=== PATIENT | male | born 1960 | race Caucasian/White ===

== ENCOUNTER 2018-05-29 13:25 | Emergency (ER) | payer MEDICARE ==
--- NOTE | 2018-05-29 13:51 | ERPHSYRPT ---
- History of Present Illness Time Seen by Provider: 05/29/18 13:46 Historian: patient Exam Limitations: no limitations Physician History: 57-year-old white male arrives with complaints of pain in his anterior chest described as a dull associated with shortness of breath and paresthesias to his left hand he also feels like his left hand is drawing up. Patient states he was nauseous earlier not now. Past medical history positive for high blood pressure, hypercholesterolemia, diabetes type 2. Past surgical history includes cholecystectomy, disc surgery on his neck, knee surgery on the left Social history negative for tobacco alcohol or illicit drug use. patient states he took 2 full size aspirin tablets before he came to the emergency room. Timing/Duration: today (1:00 this afternoon) Activities at Onset: none Quality: dullness Location: other (left upper chest) Chest Pain Radiation: no radiation Severity of Pain-Max: moderate Severity of Pain-Current: mild Modifying Factors: Improves With: nothing Associated Symptoms: nausea, shortness of breath, other (paresthesias left hand and feels like left hand drawing up), No vomiting, No palpitations, No heartburn , No abdominal pain, No cough, No hurts to breathe, No diaphoresis, No chills, No fever, No fatigue, No weakness, No swelling/lump in chest, No syncope, No rash, No headache, No dizziness, No edema, No back pain Nitro Today/Relief: no nitro taken today Aspirin Treatment Today: provided at home (650 mg at home) Allergies/Adverse Reactions: No Known Drug Allergies Allergy (Verified 05/29/18 13:58) Home Medications: Metformin HCl 1000 mg [Glucophage 1000 MG] 1 tab PO BID 01/02/14 [History] - Review of Systems Constitutional: No Fever, No Chills Eyes: No Symptoms Ears, Nose, & Throat: No Symptoms Respiratory: Dyspnea, No Cough, No Cyanosis, No Dyspnea on Exertion (ARRIAZA), No Stridor, No Wheezing Cardiac: Chest Pain, No Edema, No Palpitations, No Syncope, No Orthopnea, No PND , No Other Abdominal/Gastrointestinal: No Abdominal Pain, No Nausea, No Vomiting, No Diarrhea Genitourinary Symptoms: No Dysuria Musculoskeletal: No Back Pain, No Neck Pain Skin: No Rash Neurological: Parasthesia (Paresthesia left hand), No Dizziness, No Focal Weakness, No Gait Changes, No Headache, No Irritability, No Lethargy, No Paralysis, No Seizure, No Sensory Changes, No Speech Changes, No Tics, No Tremors, No Vertigo Psychological: No Symptoms Endocrine: No Symptoms All Other Systems: Reviewed and Negative - Past Medical History Pertinent Past Medical History: Yes Neurological History: No Pertinent History ENT History: Other Cardiac History: Hypertension Respiratory History: No Pertinent History Endocrine Medical History: Diabetes Type II Musculoskeletal History: Arthritis GI Medical History: Gallbladder Disease History: No Pertinent History Psycho-Social History: No Pertinent History Male Reproductive Disorders: No Pertinent History Other Medical History: 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 - Past Surgical History Past Surgical History: Yes Neuro Surgical History: No Pertinent History Cardiac: No Pertinent History Respiratory: No Pertinent History Gastrointestinal: No Pertinent History Genitourinary: No Pertinent History Musculoskeletal: Orthopedic Surgery Male Surgical History: No Pertinent History Other Surgical History: neck - Social History Smoking Status: Never smoker Exposure to second hand smoke: No Drug Use: none - Nursing Vital Signs Nursing Vital Signs: Initial Vital Signs Temperature 98.4 F 05/29/18 13:31 Pulse Rate 74 05/29/18 13:31 Respiratory Rate 16 05/29/18 13:31 Blood Pressure 204/100 05/29/18 13:31 O2 Sat by Pulse Oximetry 99 05/29/18 13:31 Pain Scale Pain Intensity 0 - Physical Exam General Appearance: anxiety, other (well-developed well-nourished white male, anxious) Eye Exam: PERRL/EOMI, eyes nml inspection Ears, Nose, Throat Exam: normal ENT inspection, moist mucous membranes Neck Exam: normal inspection, non-tender, supple, full range of motion Respiratory Exam: normal breath sounds, lungs clear, No respiratory distress Cardiovascular Exam: regular rate/rhythm, normal heart sounds, capillary refill <2 sec Gastrointestinal/Abdomen Exam: soft, No tenderness, No mass Back Exam: normal inspection, No CVA tenderness, No vertebral tenderness Extremity Exam: normal inspection, normal range of motion Neurologic Exam: alert, oriented x 3, waterproof coating machine tender II-XII nml as tested, normal mood/ affect, other (patient is oriented 3 alert, no facial droop, client relations representative equal and symmetrical 5 over 5, misses nose with left hand on finger to nose speech normal full range of motion toall extremities, no sensory deficits GCS equals 15 ) Skin Exam: normal color, warm, dry SpO2 Interpretation: normal (99%) - Course Nursing assessment & vital signs reviewed: Yes EKG Interpreted by Me: RATE (62 bpm), Sinus Rhythm, NORMAL AXIS, Other (EKG: Sinus rhythm, 62 bpm, normal axis, Q waves in lead 3, poor anterior R-wave progression, no acute ST or T wave changes, compared to December 26, 2013) - Radiology Exams Chest X-ray Interpretation: Discussed w/ radiologist (chest x-ray: Normal heart and lungs. Bony thorax intact with mild degenerative changes and lower cervical fusion surgery) - CT Exams Head CT Interpretation: Discussed w/radiologist (head CT: Impression: 9 mm colloid cyst without hydrocephalus. No acute intracranial abnormalities. Incidental paranasal sinus disease.) Ordered Tests: Active Orders 24 hr Category Date Time Status EKG-ER Only STAT Care 05/29/18 13:44 Active IV Insertion STAT Care 05/29/18 13:44 Active Pulse Oximetry (ED) STAT Care 05/29/18 13:44 Active CHEST 1 VIEW (PORTABLE) Stat Exams 05/29/18 14:01 Completed HEAD WITHOUT CONTRAST [CT] Stat Exams 05/29/18 13:45 Completed CBC W DIFF Stat Lab 05/29/18 13:51 Completed CMP Stat Lab 05/29/18 13:51 Completed D-DIMER QUANTITATION Stat Lab 05/29/18 13:51 Completed NT PRO BNP Stat Lab 05/29/18 13:51 Completed PROTIME WITH INR Stat Lab 05/29/18 13:51 Completed PTT Stat Lab 05/29/18 13:51 Completed TROPONIN Q3H Lab 05/29/18 13:52 Completed TROPONIN Q3H Lab 05/29/18 16:45 Ordered TROPONIN Q3H Lab 05/29/18 19:45 Ordered TROPONIN Q3H Lab 05/29/18 22:45 Ordered TROPONIN Q3H Lab 05/30/18 01:45 Ordered Medication Summary Generic Name Dose Route Start Last Admin Trade Name Freq PRN Reason Stop Dose Admin Sodium Chloride 1,000 mls @ 60 mls/hr 05/29/18 15:30 05/29/18 15:30 Sodium Chloride 0.9% 1000 Ml IV 06/28/18 15:29 60 mls/hr .[id number] CINTIA Administration Discontinued Medications Generic Name Dose Route Start Last Admin Trade Name Freq PRN Reason Stop Dose Admin Nitroglycerin 1 gm 05/29/18 15:25 05/29/18 15:30 Nitro-Bid 2% Ud Packets TOP 05/29/18 15:26 1 gm STAT ONE Administration Nitroglycerin Confirm 05/29/18 15:26 Nitro-Bid 2% Ud Packets Administered 05/29/18 15:27 Dose 1 gm .ROUTE .STK-MED ONE Lab/Rad Data: Laboratory Result Diagrams 05/29/18 13:51 05/29/18 13:51 Laboratory Results 05/29/18 05/29/18 05/29/18 Range/Units 13:52 13:51 13:51 WBC (4.0-10.5) K/mm3 RBC (4.1-5.6) M/mm3 Hgb (12.5-18.0) gm/dl Hct (42-50) % MCV (78-100) fl MCH (26-32) pg MCHC (32-36) g/dl RDW (11.5-14.0) % Plt Count (150-450) K/mm3 MPV (6-9.5) fl Gran % (36.0-66.0) % Eos # (Auto) (0-0.5) Absolute Lymphs (auto) (1.0-4.6) Absolute Monos (auto) (0.0-1.3) Lymphocytes % (24.0-44.0) % Monocytes % (0.0-12.0) % Eosinophils % (0.00-5.0) % Basophils % (0.0-0.4) % Absolute Granulocytes (1.4-6.9) Basophils # (0-0.4) PT 10.9 (8.83-12.87) SECONDS INR 0.94 (0.8-3.0) APTT 29.1 (24.1-36.1) SECONDS D-Dimer 432 (215-500) ng/mL Sodium 138 (137-145) mmol/L Potassium 3.6 (3.5-5.1) mmol/L Chloride 100 (98-107) mmol/L Carbon Dioxide 28 (22-30) mmol/L Anion Gap 14.0 (5-15) MEQ/L BUN 17 (9-20) mg/dL Creatinine 0.82 (0.66-1.25) mg/dL Estimated GFR > 60.0 ML/MIN Glucose 143 H (74-106) mg/dL Calcium 9.9 (8.4-10.2) mg/dL Total Bilirubin 0.60 (0.2-1.3) mg/dL AST 29 (17-59) U/L ALT 38 (0-50) U/L Alkaline Phosphatase 64 (38-126) U/L Troponin I 0.067 H* (0.000-0.034) ng/mL NT-Pro-B Natriuret Pep 314 (0-900) pg/mL Serum Total Protein 8.1 (6.3-8.2) g/dL Albumin 4.7 (3.5-5.0) g/dL 05/29/18 Range/Units 13:51 WBC 4.6 (4.0-10.5) K/mm3 RBC 4.67 (4.1-5.6) M/mm3 Hgb 14.4 (12.5-18.0) gm/dl Hct 43.4 (42-50) % MCV 92.9 (78-100) fl MCH 30.8 (26-32) pg MCHC 33.2 (32-36) g/dl RDW 13.2 (11.5-14.0) % Plt Count 203 (150-450) K/mm3 MPV 11.0 H (6-9.5) fl Gran % 60.2 (36.0-66.0) % Eos # (Auto) 0.23 (0-0.5) Absolute Lymphs (auto) 1.03 (1.0-4.6) Absolute Monos (auto) 0.53 (0.0-1.3) Lymphocytes % 22.5 L (24.0-44.0) % Monocytes % 11.6 (0.0-12.0) % Eosinophils % 5.0 (0.00-5.0) % Basophils % 0.7 (0.0-0.4) % Absolute Granulocytes 2.76 (1.4-6.9) Basophils # 0.03 (0-0.4) PT (8.83-12.87) SECONDS INR (0.8-3.0) APTT (24.1-36.1) SECONDS D-Dimer (215-500) ng/mL Sodium (137-145) mmol/L Potassium (3.5-5.1) mmol/L Chloride (98-107) mmol/L Carbon Dioxide (22-30) mmol/L Anion Gap (5-15) MEQ/L BUN (9-20) mg/dL Creatinine (0.66-1.25) mg/dL Estimated GFR ML/MIN Glucose (74-106) mg/dL Calcium (8.4-10.2) mg/dL Total Bilirubin (0.2-1.3) mg/dL AST (17-59) U/L ALT (0-50) U/L Alkaline Phosphatase (38-126) U/L Troponin I (0.000-0.034) ng/mL NT-Pro-B Natriuret Pep (0-900) pg/mL Serum Total Protein (6.3-8.2) g/dL Albumin (3.5-5.0) g/dL - Progress Progress: improved Air Movement: fair Progress Note: 05/29/18 13:54 This is a 57-year-old white male who arrives with complaint of pain in his left upper chest described as dull on since since 1:00 associated with shortness of breath paresthesias in drawing up of the left hand and initial nausea which has passed. Patient states she has a history of high blood pressure hypercholesterolemia and diabetes type 2 On physical examination examination is essentially normal with the exception that the patient Mrs. with finger to nose on the left he does not have any pronator drift he has client relations representative which are equal and symmetrical 5 over 5 he has full range of motion all extremities there is no speech deficits there are no neurologic deficits other than missing on finger to nose. Patient apparently states that this is been a problem with him for a while then he has been working with his family doctor concerning as he does feel like his paresthesias of his hand was worse today. Patient apparently took aspirin 650 mg prior to arrival. Patient with an EKG that shows sinus rhythm 62 bpm normal axis Q waves in lead 3 and poor anterior R-wave progression there does not appear to be acute ST or T wave changes EKG is compared to December 26, 2013. I believe patient's paresthesias to his left hand and "drawing up of his left hand R secondary to hyperventilation and carpal pedal spasms these appear to be getting better according to the patient however because of the patient's abnormal finger to nose on the left Will go ahead and obtain head CT. CBC CMP troponin d-dimer chest x-ray have all been ordered and are pending, 05/29/18 15:26 Patient states he is feeling markedly improved and is pain free. However unfortunately, his troponin is elevated at 0.067. Patient's blood pressure has been running high. Will go ahead and give patient nitroglycerin paste 1 inch and hang of normal saline to keep open. Will go ahead and contact [facility] one call for possible transfer. 05/29/18 15:37 I contacted [facility] one call. And discussed the case with Aruna CANDELARIA at the emergency room. She is excepted the patient for transfer by auto acceptance. They will call back with an accepting physician's name. Will go ahead and arrange transport. 05/29/18 15:44 The accepting physician at [facility] be Dr. Juarez. - Departure Time of Disposition: 15:38 Departure Disposition: [facility]) Clinical Impression: Elevated troponin, Paresthesias in left hand Chest pain Qualifiers: Chest pain type: unspecified Qualified Code(s): R07.9 - Chest pain, unspecified Condition: Fair Critical Care Time: No Referrals: KIMBER HERNADEZ MD [Primary Care Provider] -
[2018-05-29 14:10] LABS: BASOPHIL % 0.7 % (0.0-0.4); Basophil (Absolute #) 0.03 (0-0.4); Eosinophil (Absolute #) 0.23 (0-0.5); Granulocyte Absolute (ANC) 2.76 (1.4-6.9); Granulocytes % 60.2 % (36.0-66.0); Hematocrit 43.4 % (42-50); Hemoglobin 14.4 gm/dl (12.5-18.0); Lymphocyte (Absolute #) 1.03 (1.0-4.6); Lymphocytes % 22.5 % (24.0-44.0); Mean Cell Volume 92.9 fl (78-100); Mean Corpuscular Hemoglobin 30.8 pg (26-32); Mean Corpuscular Hgb Concent. 33.2 g/dl (32-36); Monocyte (Absolute #) 0.53 (0.0-1.3); Monocytes % 11.6 % (0.0-12.0); Platelet Count 203 K/mm3 (150-450); Red Blood Count 4.67 M/mm3 (4.1-5.6); Red Cell Distribution Width 13.2 % (11.5-14.0); White Blood Count 4.6 K/mm3 (4.0-10.5)
--- NOTE | 2018-05-29 14:18 | XRAY ---
Indication: Chest pain. Comparison: None Portable chest demonstrates normal heart and lungs. Bony thorax intact with mild degenerative changes and lower cervical fusion surgery.
[2018-05-29 14:19] LABS: INR 0.94 (0.8-3.0); PROTIME 10.9 SECONDS (8.83-12.87)
--- NOTE | 2018-05-29 14:21 | XRAY ---
Indication: Left hand numbness and chest pain. Multiple contiguous axial images obtained through the head without contrast. Comparison: None Ventriculosulcal pattern appears symmetric. There is a 9 mm dense colloid cyst in the foramen of [place]ro. No acute intracranial hemorrhage, abnormal extra-axial fluid collection, or mass effect. Fourth ventricle is midline without hydrocephalus. Andrew-white matter differentiation preserved. Bony calvarium intact. Mild mucosal thickening of both ethmoid sinuses. Mastoid air cells are clear. Impression: 9 mm colloid cyst without hydrocephalus. No acute intracranial abnormalities. Incidental paranasal sinus disease. CT DI 67.22
[2018-05-29 14:22] LABS: PTT 29.1 SECONDS (24.1-36.1)
[2018-05-29 14:32] LABS: ALBUMIN 4.7 g/dL (3.5-5.0); ALKALINE PHOSPHATASE 64 U/L (38-126); BLOOD UREA NITROGEN 17 mg/dL (9-20); CHLORIDE 100 mmol/L (98-107); Calcium 9.9 mg/dL (8.4-10.2); Carbon Dioxide 28 mmol/L (22-30); Creatinine 1 0.82 mg/dL (0.66-1.25); Glucose 143 mg/dL (74-106); NT PRO BNP 314 pg/mL (0-900); Potassium 3.6 mmol/L (3.5-5.1); SGOT/AST 29 U/L (17-59); SGPT/ALT 38 U/L (0-50); SODIUM 138 mmol/L (137-145); Total Protein 8.1 g/dL (6.3-8.2)
[2018-05-29] MEDS ORDERED: NITRO-BID 2% UD PACKETS TOP ONE (15:25)
[2018-05-29] MEDS ORDERED: Sodium Chloride 0.9% 1000 ML 1,000 ML ONE (15:25)
[2018-05-29] MEDS ORDERED: NITRO-BID 2% UD PACKETS ONE (15:26)
[2018-05-29] MEDS ORDERED: Sodium Chloride 0.9% 1000 ML 1,000 ML IV SCH (15:30)
[2018-05-29 15:46] VITALS: PULSE 72; O2SAT 97
[2018-05-29 16:06] VITALS: BP 180/113
== END 2018-05-29 16:20 | disposition short-term general hospital (02) ==
LOC: ED 13:25
DX: R74.8 Abnormal levels of other serum enzymes (principal); R20.2 Paresthesia of skin; R07.9 Chest pain, unspecified; M19.90 Unspecified osteoarthritis, unspecified site; E11.9 Type 2 diabetes mellitus without complications; Z79.4 Long term (current) use of insulin; I10 Essential (primary) hypertension; E78.00 Pure hypercholesterolemia, unspecified
CPT/HCPCS: 36000; 36415; 70450; 71045; 80053; 83880; 84484; 85025; 85379; 85610; 85730; 93005; 96360; 99285; A9270-GY